=== PATIENT | male | born 1990 | race Caucasian/White ===

== ENCOUNTER → 2018-02-14 | Outpatient (REF) | payer OTHER, MEDICAID ==
[2018-02-14 13:41] LABS: ESTIMATED AVERAGE GLUCOSE 108 MG/DL (60-110); HEMOGLOBIN A1c 5.4 %
[2018-02-15 12:39] LABS: HIV 1&2 SCREEN CENTAUR NEGATIVE (NEGATIVE)
== END ==
LOC: M LAB REF 12:30
DX: Z68.43 Body mass index [BMI] 50.0-59.9, adult (principal); Z13.9 Encounter for screening, unspecified

== ENCOUNTER → 2018-03-15 | Outpatient (CLI) | payer OTHER, MEDICAID ==
[2018-03-15 09:06] LABS: BASO % 0.3 % (0.0-1.0); EOS # 0.3 10^3/uL (0.0-0.50); EOS % 2.9 % (0.0-3.0); HEMATOCRIT 45.9 % (42.0-52.0); IMMATURE GRANULOCYTE % 0.3 % (0-3.0); LYMPH # 3.1 10^3/uL (1.5-6.5); LYMPH % 34.1 % (24.0-44.0); MEAN CORPUSCULAR HEMOGLOBIN 30.1 pg (27.0-33.0); MEAN CORPUSCULAR HGB CONC 34.9 g/dl (32.0-36.5); MEAN CORPUSCULAR VOLUME 86.3 fl (80.0-96.0); MONO # 0.6 10^3/uL (0.0-0.8); MONO % 6.7 % (0.0-5.0); NEUTROPHILS # 5.1 10^3/uL (1.8-7.7); NEUTROPHILS % 55.7 % (36.0-66.0); PLATELET COUNT, AUTOMATED 256 10^3/uL (150-450); RED BLOOD COUNT 5.32 10^6/uL (4.30-6.10); RED CELL DISTRIBUTION WIDTH 13.2 % (11.5-14.5); WHITE BLOOD COUNT 9.2 10^3/uL (4.0-10.0)
[2018-03-15 09:32] LABS: ALBUMIN 3.6 GM/DL (3.2-5.2); ALBUMIN/GLOBULIN RATIO 0.86 (1.00-1.93); ALKALINE PHOSPHATASE 96 U/L (45-117); ALT/SGPT 129 U/L (12-78); ANION GAP 7 MEQ/L (8-16); AST/SGOT 77 U/L (7-37); BILIRUBIN,TOTAL 1.3 MG/DL (0.2-1.0); BLOOD UREA NITROGEN 9 MG/DL (7-18); CALCIUM LEVEL 8.8 MG/DL (8.5-10.1); CARBON DIOXIDE LEVEL 27 MEQ/L (21-32); CHLORIDE LEVEL 107 MEQ/L (98-107); CHOLESTEROL LEVEL 195 MG/DL (<200); CREATININE FOR GFR 0.93 MG/DL (0.70-1.30); GLOMERULAR FILTRATION RATE > 60.0 (>60); GLUCOSE, FASTING 104 MG/DL (70-100); HDL CHOLESTEROL 25 MG/DL (>40); NON-HDL-C 170 MG/DL; POTASSIUM SERUM 4.1 MEQ/L (3.5-5.1); SODIUM LEVEL 141 MEQ/L (136-145); TOTAL PROTEIN 7.8 GM/DL (6.4-8.2); TRIGLYCERIDES LEVEL 145 MG/DL (<150)
== END ==
LOC: M WUC 08:21
DX: Z68.43 Body mass index [BMI] 50.0-59.9, adult (principal)
CPT/HCPCS: 84443

== ENCOUNTER → 2018-05-11 | Outpatient (CLI) | payer OTHER | LOC: M WUC 09:12 | DX: M79.A11 Nontraumatic compartment syndrome of right upper extremity (principal) | CPT/HCPCS: 73030 ==

== ENCOUNTER → 2018-07-06 | Outpatient (CLI) | payer OTHER | LOC: M RAD 08:43 | DX: M51.36 Other intervertebral disc degeneration, lumbar region (principal); M51.37 Other intervertebral disc degeneration, lumbosacral region | CPT/HCPCS: 72148 ==

== ENCOUNTER → 2019-08-30 | Outpatient (CLI) | payer OTHER ==
--- NOTE | 2019-08-30 14:23 | REP ---
Chest x-ray: Two views. History: Dyspnea . Comparison study: No comparison study . Findings: The lungs are well inflated and free of infiltrate. The pleural angles are sharp. The heart size is normal. Pulmonary vasculature is not increased. No significant bony abnormality is seen. Impression: Negative chest x-ray. Electronically Signed by Luis F Jeffries MD 08/30/2019 02:14 P
== END ==
LOC: M SMT 11:01
PROVIDERS: ATTEND Physician Assistant
DX: R06.00 Dyspnea, unspecified (principal)

== ENCOUNTER → 2019-09-18 | Outpatient (CLI) | payer OTHER ==
--- NOTE | 2019-09-18 07:14 | PFTRPT ---
Height: 73.00 Inches Weight: 425.00 Lbs BSA: 2.96 Diagnosis: R06.00 DATE OF STUDY: 09/18/2019 ORDERED BY: Yousif White PA-C Spirometry: Pre and post bronchodilator study of excellent technical quality. Forced vital capacity reduced. FEV1 in proportion. Obstructive index is, therefore, normal. Flow Volume Loop: Expiratory limb of the flow volume loop does suggest some nonspecific flow rate limitation. No significant bronchodilator response is identified. Lung Volumes: Total lung capacity is normal. Residual volume is in proportion. Diffusing Capacity: Diffusing capacity is normal and remains normal when corrected for alveolar volume. Hemoglobin: Hemoglobin acceptable at 16.3. Airway Mechanics: Airway resistance elevated with concomitant decrease in airway conductance. IMPRESSION: Nonspecific flow rate limitation as outlined above. Please correlate clinically. MTDD
== END ==
LOC: M CARPUL 06:21
PROVIDERS: ATTEND Physician Assistant
DX: R94.2 Abnormal results of pulmonary function studies (principal); R06.00 Dyspnea, unspecified

== ENCOUNTER → 2019-09-19 | Outpatient (CLI) | payer OTHER ==
[2019-09-19 12:15] LABS: BASO % 0.3 % (0.0-1.0); EOS # 0.4 10^3/uL (0.0-0.5); EOS % 4.1 % (0.0-3.0); HEMOGLOBIN 15.5 g/dl (13.5-17.5); LYMPH # 2.7 10^3/uL (1.5-5.0); LYMPH % 27.1 % (24.0-44.0); MEAN CORPUSCULAR HEMOGLOBIN 31.3 pg (27.0-33.0); MEAN CORPUSCULAR HGB CONC 34.4 g/dl (32.0-36.5); MEAN CORPUSCULAR VOLUME 90.9 fl (80.0-96.0); MONO # 0.6 10^3/uL (0.0-0.8); MONO % 6.4 % (0.0-5.0); NEUTROPHILS # 6.1 10^3/uL (1.5-8.5); NEUTROPHILS % 61.8 % (36.0-66.0); PLATELET COUNT, AUTOMATED 278 10^3/uL (150-450); RED BLOOD COUNT 4.95 10^6/uL (4.30-6.10); WHITE BLOOD COUNT 9.9 10^3/uL (4.0-10.0)
[2019-09-19 12:33] LABS: HEMOGLOBIN A1c 5.3 %
[2019-09-19 12:43] LABS: ALBUMIN 3.6 GM/DL (3.2-5.2); ALT/SGPT 72 U/L (12-78); BILIRUBIN,TOTAL 0.8 MG/DL (0.2-1.0); BLOOD UREA NITROGEN 14 MG/DL (7-18); CALCIUM LEVEL 8.8 MG/DL (8.5-10.1); CARBON DIOXIDE LEVEL 27 MEQ/L (21-32); CHLORIDE LEVEL 108 MEQ/L (98-107); CHOLESTEROL LEVEL 165 MG/DL (<200); CHOLESTEROL RISK RATIO 4.852 (<5); CREATININE FOR GFR 1.09 MG/DL (0.70-1.30); FREE T4 1.15 NG/DL (0.76-1.46); GLOMERULAR FILTRATION RATE > 60.0 (>60); GLUCOSE, FASTING 89 MG/DL (70-100); HDL CHOLESTEROL 34 MG/DL (>40); LDL CHOLESTEROL 107 MG/DL (<100); NON-HDL-C 131 MG/DL; POTASSIUM SERUM 4.9 MEQ/L (3.5-5.1); SODIUM LEVEL 141 MEQ/L (136-145); TOTAL PROTEIN 7.7 GM/DL (6.4-8.2); TRIGLYCERIDES LEVEL 118 MG/DL (<150)
== END ==
LOC: M WUC 10:34
PROVIDERS: ATTEND Nurse Practitioner Family
DX: Z00.01 Encounter for general adult medical examination with abnormal findings (principal)

== ENCOUNTER → 2020-01-05 | Outpatient (CLI) | payer OTHER ==
--- NOTE | 2020-01-07 16:07 | SLEEPCENT ---
DATE OF STUDY: 01/05/2020 ORDERED BY: PABLO Tom Nocturnal polysomnography was performed for evaluation of sleep physiology in this patient with history of excessive somnolence, snoring, and nonrestorative sleep. 7 hours and 53 minutes of data were reviewed. There were 431.5 minutes of sleep identified. Sleep latency was normal at 7 minutes. Rapid eye movement (REM) latency was mildly delayed at 108 minutes. Sleep architecture was fairly good with 4 REM cycles. Overall sleep efficiency 92.7%. The patient's electrocardiogram showed a sinus rhythm with an average heart rate of 64 beats per minute. Rate ranged 50-95. Electroencephalogram (EEG) showed some EKG bleed through, otherwise normal waveforms for awake and sleep. There were 146 respiratory events identified of 10 seconds in duration or greater for an apnea-hypopnea index of 20.3. The events were primarily obstructive not exclusive to sleep stage nor body posture. Arousals from respiratory events occurred 9.6 times per hour and oxygen desaturations were seen into the 70s. Remaining measures of sleep physiology were normal. IMPRESSION: Obstructive sleep apnea syndrome (G47.33). Apnea-hypopnea index 20.3. RECOMMENDATIONS: The patient should be encouraged to return to the sleep disorder center for pressure therapy. In the interim, alcohol and sedative avoidance should be practiced and caution exercised during the operation of motor vehicles.
== END ==
LOC: M SLEEP 20:00
PROVIDERS: ATTEND Physician Assistant
DX: G47.33 Obstructive sleep apnea (adult) (pediatric) (principal); R40.0 Somnolence

== ENCOUNTER → 2020-01-30 | Outpatient (REF) | payer OTHER ==
[2020-01-30 12:25] LABS: BASO % 0.3 % (0.0-1.0); EOS # 0.3 10^3/uL (0.0-0.5); EOS % 2.4 % (0.0-3.0); HEMATOCRIT 45.3 % (42.0-52.0); HEMOGLOBIN 15.6 g/dl (13.5-17.5); LYMPH # 2.7 10^3/uL (1.5-5.0); LYMPH % 21.4 % (24.0-44.0); MEAN CORPUSCULAR HEMOGLOBIN 30.3 pg (27.0-33.0); MEAN CORPUSCULAR HGB CONC 34.4 g/dl (32.0-36.5); MONO # 0.7 10^3/uL (0.0-0.8); MONO % 5.9 % (0.0-5.0); NEUTROPHILS # 8.6 10^3/uL (1.5-8.5); NEUTROPHILS % 69.5 % (36.0-66.0); PLATELET COUNT, AUTOMATED 327 10^3/uL (150-450); RED BLOOD COUNT 5.15 10^6/uL (4.30-6.10); WHITE BLOOD COUNT 12.4 10^3/uL (4.0-10.0)
[2020-01-30 12:51] LABS: C REACTIVE PROTEIN QUANTITATIV 3.84 MG/DL (0.00-0.30); RHEUMATOID FACTOR QUANT < 10.0 IU/ML (<15.0)
[2020-01-30 14:08] LABS: ERYTHROCYTE SEDIMENTATION RATE 49 mm/hr (0-15)
[2020-02-01 00:07] LABS: ANTINUCLEAR ANTIBODIES DIRECT Negative (Negative); Lyme Disease IgG/IgM Antibodie <0.91 ISR (0.00-0.90); Lyme Disease IgM Ab Quantitati <0.80 index (0.00-0.79)
== END ==
LOC: M LABDRAW1 10:13
PROVIDERS: ATTEND Orthopaedic Surgery
DX: M17.11 Unilateral primary osteoarthritis, right knee (principal)

== ENCOUNTER → 2020-02-16 | Outpatient (CLI) | payer OTHER ==
--- NOTE | 2020-02-19 16:27 | SLEEPCENT ---
DATE OF PROCEDURE: 02/16/2020 ORDERED BY: PABLO Tom Nocturnal polysomnography was performed for the titration of pressure therapy in this patient with obstructive sleep apnea syndrome. Apnea-hypopnea index of 20.3. For testing a [place] and Dominic, Simplus full-face mask of small size was used; 5 cm of water pressure were applied to the circuit and the lights were extinguished. 7 hours and 45 minutes of data were reviewed. There were 419 minutes of sleep identified. Sleep latency was short at 0.5 minutes. Rapid eye movement (REM) latency was normal at 127 minutes. Sleep architecture was good with 3 REM cycles. Overall sleep efficiency was 91.8%. The patient's electrocardiogram showed a sinus rhythm with an average heart rate of 64 beats per minute. Electroencephalogram (EEG) showed normal waveforms for awake and sleep. Respiratory events were well palliated with CPAP at a pressure +17. IMPRESSION: Obstructive sleep apnea syndrome (G47.33). RECOMMENDATIONS: Nightly use of pressure therapy 17 cm of water. edited: 02/20/2020 0826 tklivia GOVEA
== END ==
LOC: M SLEEP 20:00
PROVIDERS: ATTEND Physician Assistant
DX: G47.33 Obstructive sleep apnea (adult) (pediatric) (principal)

== ENCOUNTER → 2020-04-11 | Outpatient (CLI) | payer OTHER ==
[~2020-04-11] MED LIST: AMLO10TA5; AZEL1SPR3; CELE1CAP9; DULO1CAP6; ESCI10TA2; GABA600T4; LISI10TA4; TIZA4TAB4; VENTAER
[2020-04-11 13:30] LABS: BLOOD UREA NITROGEN 14 MG/DL (7-18); GLOMERULAR FILTRATION RATE > 60.0 (>60)
== END ==
LOC: M WUC 09:55
PROVIDERS: ATTEND Physical Medicine & Rehabilitation
DX: M51.27 Other intervertebral disc displacement, lumbosacral region (principal)

== ENCOUNTER → 2020-04-11 | Outpatient (CLI) | payer OTHER | LOC: M WUC 09:52 | PROVIDERS: ATTEND Physician Assistant Surgical | DX: M25.561 Pain in right knee (principal) ==

== ENCOUNTER 2020-04-17 15:15 | Emergency (ER) | payer OTHER ==
[~2020-04-17] VITALS: Ht 185.4 cm; Wt 198.2 kg
[2020-04-17] MEDS ORDERED: GABA600T4 (15:24)
[2020-04-17] MEDS ORDERED: DULO1CAP6 (15:24)
[2020-04-17] MEDS ORDERED: CELE1CAP9 (15:24)
[2020-04-17] MEDS ORDERED: VENTAER (15:24)
[2020-04-17] MEDS ORDERED: LISI10TA4 (15:24)
[2020-04-17] MEDS ORDERED: ESCI10TA2 (15:24)
[2020-04-17] MEDS ORDERED: TIZA4TAB4 (15:24)
[2020-04-17] MEDS ORDERED: AMLO10TA5 (15:24)
[2020-04-17] MEDS ORDERED: AZEL1SPR3 (15:24)
[2020-04-17] MEDS ORDERED: tiZANidine 4 MG TAB PO ONE (16:00)
--- NOTE | 2020-04-17 17:32 | REPVR ---
PROCEDURE INFORMATION: Exam: MR Lumbar Spine Without Contrast. Exam date and time: 04/17/2020 5:15 PM Age: 29 years old Clinical indication: Pain; Weakness and other: Incontinence; Lumbago; Additional info: Severe lbp; Loss of bowel control; R/O cauda equina TECHNIQUE: Imaging protocol: Multiplanar magnetic resonance images of the lumbar spine without intravenous contrast. COMPARISON: MRI-Spine, L.S. without con 07/06/2018 9:03 AM FINDINGS: Vertebrae: Anatomic alignment. No acute fracture seen. The AP spinal canal diameter is diminished on a developmental basis due to shortened pedicles. Spinal cord: The conus medullaris ends normally. There is disc desiccation from L2-L3 through L4-L5. Disc height and spondylosis is [id number] at L4-L5, mild at L3-L4, minimal at L2-L3. Inflammatory and fatty degenerative marrow signal change of the endplates at L4-L5. Trace fatty degenerative marrow signal change of the endplates at L3-L4. There are small endplate Schmorl's nodes. The degenerative disc disease at L4-L5 has progressed since the prior study. L1-L2: No significant interval change. No stenoses. L2-L3: No significant interval change. Mild disc degeneration. No stenoses. L3-L4: No significant interval change. Mild disc osteophyte, facet arthropathy and ligamentum flavum buckling. No significant central spinal canal stenosis. Minimal right neural foraminal stenosis. No significant left neural foraminal narrowing. L4-L5: New mild disc osteophyte complex. There is mild facet arthropathy and ligamentum flavum buckling, as before. No significant central spinal canal stenosis. Mild right neural foraminal stenosis, mildly progressive since prior. No significant left neural foraminal narrowing. L5-S1: No significant interval change. Mild facet arthropathy. No stenoses. Soft tissues: Nonspecific patchy edema in the back subcutaneous fat potentially dependent/positional. IMPRESSION: 1. Progression of degenerative disc disease at L4-L5. 2. No evidence of conus medullaris or cauda equina nerve root compression. The central spinal canal appears patent throughout. 3. Mild progression of neural foraminal stenosis on the right at L4-L5, mild in degree. Electronically signed by: Shelli Escalante On 04/17/2020 17:32:09 PM
[2020-04-17 17:50] VITALS: BP 133/90
== END 2020-04-17 17:50 | disposition home or self-care (01) ==
LOC: M ED 15:15
DX: M51.36 Other intervertebral disc degeneration, lumbar region (principal); M99.53 Intervertebral disc stenosis of neural canal of lumbar region; I10 Essential (primary) hypertension; Z87.891 Personal history of nicotine dependence; Z79.899 Other long term (current) drug therapy; Z88.0 Allergy status to penicillin

== ENCOUNTER → 2020-04-29 | Outpatient (CLI) | payer OTHER | LOC: M WUC 11:54 | PROVIDERS: ATTEND Physician Assistant | DX: M51.37 Other intervertebral disc degeneration, lumbosacral region (principal) ==

== ENCOUNTER → 2020-06-10 | Outpatient (CLI) | payer OTHER ==
[~2020-06-10] MED LIST changes: -AMLO10TA5; +AMLO1TAB25
== END ==
LOC: M WUC 10:58
PROVIDERS: ATTEND Internal Medicine Rheumatology
DX: G89.29 Other chronic pain (principal)

== ENCOUNTER → 2020-07-14 | Outpatient (CLI) | payer OTHER | LOC: M RAD 13:00 | PROVIDERS: ATTEND Physician Assistant | DX: M51.37 Other intervertebral disc degeneration, lumbosacral region (principal); M51.46 Schmorl's nodes, lumbar region; M51.26 Other intervertebral disc displacement, lumbar region ==

== ENCOUNTER → 2020-09-19 | Outpatient (REF) | payer OTHER, MEDICAID ==
[2020-09-19 16:49] LABS: BASO % 0.3 % (0.0-1.0); EOS # 0.3 10^3/uL (0.0-0.5); HEMATOCRIT 45.6 % (42.0-52.0); HEMOGLOBIN 16.1 g/dl (13.5-17.5); LYMPH # 2.7 10^3/uL (1.5-5.0); LYMPH % 24.4 % (24.0-44.0); MEAN CORPUSCULAR HEMOGLOBIN 31.6 pg (27.0-33.0); MEAN CORPUSCULAR HGB CONC 35.3 g/dl (32.0-36.5); MEAN CORPUSCULAR VOLUME 89.4 fl (80.0-96.0); MONO # 0.7 10^3/uL (0.0-0.8); MONO % 6.6 % (0.0-5.0); NEUTROPHILS # 7.2 10^3/uL (1.5-8.5); NEUTROPHILS % 65.2 % (36.0-66.0); PLATELET COUNT, AUTOMATED 272 10^3/uL (150-450)
[2020-09-19 17:17] LABS: ALBUMIN 3.6 GM/DL (3.2-5.2); ALT/SGPT 72 U/L (12-78); BILIRUBIN,TOTAL 0.6 MG/DL (0.2-1.0); BLOOD UREA NITROGEN 13 MG/DL (7-18); CARBON DIOXIDE LEVEL 26 MEQ/L (21-32); CHLORIDE LEVEL 104 MEQ/L (98-107); CHOLESTEROL LEVEL 181 MG/DL (<200); CHOLESTEROL RISK RATIO 5.171 (<5); CREATININE FOR GFR 0.99 MG/DL (0.70-1.30); GLOMERULAR FILTRATION RATE > 60.0 (>60); GLUCOSE, FASTING 101 MG/DL (70-100); HDL CHOLESTEROL 35 MG/DL (>40); LDL CHOLESTEROL 122 MG/DL (<100); NON-HDL-C 146 MG/DL; POTASSIUM SERUM 4.8 MEQ/L (3.5-5.1); SODIUM LEVEL 138 MEQ/L (136-145); TOTAL PROTEIN 7.8 GM/DL (6.4-8.2); TRIGLYCERIDES LEVEL 120 MG/DL (<150)
== END ==
LOC: M LAB REF 16:18
PROVIDERS: ATTEND Physician Assistant
DX: I10 Essential (primary) hypertension (principal)

== ENCOUNTER → 2021-01-28 | Outpatient (CLI) | payer OTHER, MEDICAID ==
[~2021-01-28] MED LIST changes: +ESCI10TA16; -ESCI10TA2; +LISI10TA22; -LISI10TA4
[2021-01-28 13:28] LABS: BASO % 0.3 % (0.0-1.0); EOS # 0.3 10^3/uL (0.0-0.5); EOS % 2.4 % (0.0-3.0); HEMATOCRIT 48.9 % (42.0-52.0); HEMOGLOBIN 15.8 g/dl (13.5-17.5); LYMPH # 3.4 10^3/uL (1.5-5.0); LYMPH % 31.5 % (24.0-44.0); MEAN CORPUSCULAR HEMOGLOBIN 28.7 pg (27.0-33.0); MEAN CORPUSCULAR HGB CONC 32.3 g/dl (32.0-36.5); MEAN CORPUSCULAR VOLUME 88.9 fl (80.0-96.0); MONO # 0.7 10^3/uL (0.0-0.8); MONO % 6.5 % (2.0-8.0); NEUTROPHILS # 6.4 10^3/uL (1.5-8.5); PLATELET COUNT, AUTOMATED 354 10^3/uL (150-450); WHITE BLOOD COUNT 10.8 10^3/uL (4.0-10.0)
[2021-01-28 14:15] LABS: ALT/SGPT 64 U/L (12-78); BILIRUBIN,TOTAL 0.9 MG/DL (0.2-1.0); BLOOD UREA NITROGEN 11 MG/DL (7-18); CALCIUM LEVEL 9.8 MG/DL (8.5-10.1); CARBON DIOXIDE LEVEL 28 MEQ/L (21-32); CHLORIDE LEVEL 104 MEQ/L (98-107); FOLATE 5.2 NG/ML (>5.4); GLOMERULAR FILTRATION RATE > 60.0 (>60); GLUCOSE, FASTING 81 MG/DL (70-100); IRON (FE) 72 UG/DL (65-175); PERCENT SATURATION 23.2 % (19.7-50.0); SODIUM LEVEL 139 MEQ/L (136-145); TOTAL 25(OH) VITAMIN D 13.4 NG/ML (30.0-100.0); TOTAL IRON BINDING CAPACITY 310 UG/DL (250-450); VITAMIN B12 LEVEL 1362 PG/ML (247-911)
== END ==
LOC: M WUC 10:33
PROVIDERS: ATTEND Physician Assistant
DX: R53.83 Other fatigue (principal); Z98.84 Bariatric surgery status; I10 Essential (primary) hypertension

== ENCOUNTER → 2021-12-11 | Outpatient (CLI) | payer OTHER ==
[~2021-12-11] MED LIST changes: +TIZA10TA; -TIZA4TAB4
== END ==
LOC: M SLEEP 20:00
PROVIDERS: ATTEND Physician Assistant
DX: G47.33 Obstructive sleep apnea (adult) (pediatric) (principal)

== ENCOUNTER → 2023-03-03 | Outpatient (REF) | payer OTHER ==
[2023-03-03 17:08] LABS: ALBUMIN 3.9 G/DL (3.2-5.2); ALKALINE PHOSPHATASE 77 U/L (46-116); ALT/SGPT 25 U/L (7.0-40); AST/SGOT 17 U/L (<34); BILIRUBIN,TOTAL 0.8 MG/DL (0.3-1.2); BLOOD UREA NITROGEN 14 MG/DL (9-23); CALCIUM LEVEL 8.6 MG/DL (8.5-10.1); CARBON DIOXIDE LEVEL 29 MMOL/L (20-31); CHLORIDE LEVEL 107 MMOL/L (98-107); CHOLESTEROL LEVEL 159 MG/DL (<200); CREATININE FOR GFR 0.97 MG/DL (0.70-1.30); GLOMERULAR FILTRATION RATE > 60.0 (>60); GLUCOSE, FASTING 86 MG/DL (60-100); HDL CHOLESTEROL 34.5 MG/DL (>40); LDL CHOLESTEROL 103.5 MG/DL (<100); NON-HDL-C 124.5 MG/DL; POTASSIUM SERUM 4.9 MMOL/L (3.5-5.1); SODIUM LEVEL 141 MMOL/L (136-145); TOTAL PROTEIN 7.1 G/DL (5.7-8.2); TRIGLYCERIDES LEVEL 105 MG/DL (<150)
[2023-03-03 17:10] LABS: THYROID STIMULATING HORMONE 0.812 uIU/ML (0.55-4.78)
[2023-03-03 17:16] LABS: HEMATOCRIT 47.6 % (42.0-52.0); HEMOGLOBIN 16.4 g/dl (13.5-17.5); MEAN CORPUSCULAR HEMOGLOBIN 30.8 pg (27.0-33.0); MEAN CORPUSCULAR HGB CONC 34.5 g/dl (32.0-36.5); MEAN CORPUSCULAR VOLUME 89.3 fl (80.0-96.0); PLATELET COUNT, AUTOMATED 266 10^3/uL (150-450); RED BLOOD COUNT 5.33 10^6/uL (4.30-6.10); WHITE BLOOD COUNT 9.9 10^3/uL (4.0-10.0)
== END ==
LOC: M LAB REF 16:24
PROVIDERS: ATTEND Physician Assistant
DX: I10 Essential (primary) hypertension (principal); R73.01 Impaired fasting glucose; Z11.59 Encounter for screening for other viral diseases

== ENCOUNTER → 2024-09-26 | Outpatient (REF) | payer OTHER ==
[~2024-09-26] MED LIST changes: +CELE0.09; -CELE1CAP9; +GABA-1490; -GABA600T4
[2024-09-26 19:25] LABS: HEMATOCRIT 47.5 % (42.0-52.0); HEMOGLOBIN 16.3 g/dl (13.5-17.5); MEAN CORPUSCULAR HEMOGLOBIN 30.7 pg (27.0-33.0); MEAN CORPUSCULAR HGB CONC 34.3 g/dl (32.0-36.5); MEAN CORPUSCULAR VOLUME 89.5 fl (80.0-96.0); PLATELET COUNT, AUTOMATED 272 10^3/uL (150-450); RED BLOOD COUNT 5.31 10^6/uL (4.30-6.10); WHITE BLOOD COUNT 9.2 10^3/uL (4.0-10.0)
[2024-09-26 19:44] LABS: ALBUMIN 3.7 G/DL (3.2-5.2); ALKALINE PHOSPHATASE 79 U/L (40-129); ALT/SGPT 29 U/L (7.0-40); AST/SGOT 14 U/L (<34); BILIRUBIN,TOTAL 0.9 MG/DL (0.3-1.2); BLOOD UREA NITROGEN 15 MG/DL (9-23); CALCIUM LEVEL 9.1 MG/DL (8.5-10.1); CARBON DIOXIDE LEVEL 26 MMOL/L (20-31); CHLORIDE LEVEL 111 MMOL/L (98-107); CHOLESTEROL LEVEL 160 MG/DL (<200); CHOLESTEROL RISK RATIO 4.51 (<5); CREATININE FOR GFR 0.89 MG/DL (0.70-1.30); GLOMERULAR FILTRATION RATE > 60.0 (>60); GLUCOSE, FASTING 100 MG/DL (60-100); HDL CHOLESTEROL 35.4 MG/DL (>40); NON-HDL-C 124.6 MG/DL; POTASSIUM SERUM 4.8 MMOL/L (3.5-5.1); SODIUM LEVEL 139 MMOL/L (136-145); TOTAL PROTEIN 7.4 G/DL (5.7-8.2); TRIGLYCERIDES LEVEL 113 MG/DL (<150)
== END ==
LOC: M LAB REF 16:27
PROVIDERS: ATTEND Physician Assistant
DX: E66.01 Morbid (severe) obesity due to excess calories (principal); Z98.84 Bariatric surgery status; K91.2 Postsurgical malabsorption, not elsewhere classified; E78.5 Hyperlipidemia, unspecified

== ENCOUNTER → 2025-02-21 | Outpatient (CLI) | payer OTHER | LOC: M SLEEP 20:00 | PROVIDERS: ATTEND Physician Assistant | DX: R06.83 Snoring (principal) ==

== ENCOUNTER → 2025-11-19 | Outpatient (REF) | payer OTHER ==
[2025-11-19 17:33] LABS: PLATELET COUNT, AUTOMATED 260 10^3/uL (150-450)
[2025-11-19 17:56] LABS: ALT/SGPT 24 U/L (7.0-40); AST/SGOT 24 U/L (<34); CALCIUM LEVEL 8.3 MG/DL (8.5-10.1); CARBON DIOXIDE LEVEL 27 MMOL/L (20-31); CHLORIDE LEVEL 107 MMOL/L (98-107); CHOLESTEROL LEVEL 157 MG/DL (<200); CHOLESTEROL RISK RATIO 5.16 (<5); CREATININE FOR GFR 0.87 MG/DL (0.70-1.30); GLOMERULAR FILTRATION RATE > 90.0 (>60); IRON (FE) 86 UG/DL (65-175); LDL CHOLESTEROL 106.4 MG/DL (<100); NON-HDL-C 126.6 MG/DL; PERCENT SATURATION 25.0 % (19.7-50.0); POTASSIUM SERUM 4.7 MMOL/L (3.5-5.1); SODIUM LEVEL 140 MMOL/L (136-145); TRIGLYCERIDES LEVEL 101 MG/DL (<150)
[2025-11-19 17:59] LABS: TOTAL 25(OH) VITAMIN D 17.5 NG/ML (20.0-100.0)
[2025-11-19 18:00] LABS: VITAMIN B12 LEVEL 219 PG/ML (211-911)
== END ==
LOC: M LAB REF 16:40
PROVIDERS: ATTEND Physician Assistant
DX: E78.5 Hyperlipidemia, unspecified (principal); E66.01 Morbid (severe) obesity due to excess calories; Z98.84 Bariatric surgery status; K91.2 Postsurgical malabsorption, not elsewhere classified; Z68.41 Body mass index [BMI] 40.0-44.9, adult